=== PATIENT | male | born 1945 ===

== ENCOUNTER 2020-12-25 11:27 | Outpatient (CLI) | payer MEDICARE, OTHER | END 2020-12-25 11:28 | disposition critical access hospital (66) | LOC: EMS 11:27 | DX: R41.0 Disorientation, unspecified (principal); I10 Essential (primary) hypertension; R51.9 Headache, unspecified | CPT/HCPCS: A0425; A0427 ==

== ENCOUNTER 2020-12-25 11:44 | Emergency (ER) | payer MEDICARE, OTHER ==
--- NOTE | 2020-12-25 11:58 | ED Physician Documentation ---
History of Present Illness - Stated complaint Stated Complaint: CONFUSION/HEAD ACHE - Chief complaint Chief Complaint: Neuro - Additonal information Additional information: 75-year-old male is brought to the emergency department for evaluation of sudden onset confusion as well as headache. 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 He reports that at about 9 AM he developed a headache however it did not really bother him until about 10 or 1030. He was speaking to some of the workers onsite where they noted that he seemed confused and was not making sense therefore he was brought to one of our local walk-in clinics who summoned 911 to bring him here to the ER. He is noted to be moderately hypertensive with blood pressures 190/110. He reports a history of hypertension but is not on medications. He reports he controls his BP with beet juice. On presentation he is alert well oriented. He does seem confused as to place/city as well as the date of the month (thinks it is the 12th and not the 24th) He does report a mild frontal headache at this time. Denies tobacco use. Very infrequent alcohol use. No history of coronary artery disease or strokes. Fast exam negative. NIHSS 0 Review of Systems Constitutional: denies: Fever, Chills Eyes: denies: Loss of vision Ears: reports: Reviewed and negative Nose: reports: Reviewed and negative Throat: reports: Reviewed and negative Cardiac: denies: Chest pain / pressure, Palpitations Respiratory: denies: Dyspnea, Cough GI: denies: Abdominal Pain, Nausea, Vomiting : denies: Dysuria, Frequency, Hesitancy Skin: denies: Rash, Lesions Musculoskeletal: reports: Reviewed and negative Neurologic: reports: Confused, Headache. denies: Generalized weakness, Focal weakness, Numbness, Difficulty speaking, Syncope, Seizure, Head injury, LOC Psychiatric: denies: Depressed, Suicidal Endocrine: denies: Polydypsia, Polyuria PD PAST MEDICAL HISTORY - Present Medications Home Medications: Ambulatory Orders Medication Instructions Recorded Confirmed Lisinopril [Zestril] 10 mg PO DAILY #30 tablet 12/25/20 - Allergies Allergies/Adverse Reactions: Allergies Allergy/AdvReac Type Severity Reaction Status Date / Time No Known Drug Allergies Allergy Verified 12/25/20 11:50 PD ED PE EXPANDED - General General: Alert, No acute distress, Well developed/nourished - HEENT HEENT: Atraumatic, PERRL, EOMI, Moist mucous membranes - Eyes Eyes: PERRL, Normal accommodation - Neck Neck: Supple w/out meningeal sx. No: Adenopathy - Cardiac Cardiac: Regular Rate, Radial strong equal, Cap refill < 2 sec. No: Murmur Present - Respiratory Respiratory: Clear to ausultation alverto. No: Distress, Labored - Abdomen Abdomen: Normal Bowel sounds. No: Tender to palpation - Derm Derm: Normal color, Warm and dry - Extremities Extremities: Normal. No: Deformity, Tenderness - Neuro Neuro: Alert and Oriented X 3, CNII-XII intact, Cerebellar nl, Normal gait, Normal finger nose, Normal speech - GCS Eye Opening: Spontaneous Motor: Obeys Commands Verbal: Oriented Total: 15 - Psych Psych: Normal Results - Vitals Vitals: Vital Signs - 24 hr 12/25/20 11:50 Temperature 36.5 C Heart Rate 60 Respiratory 16 Rate Blood Pressure 188/93 H O2 Saturation 98 Oxygen O2 Source Room air - EKG (time done) 1200 Rate: Rate (enter#) (62) Rhythm: NSR [place]: Normal Intervals: Normal MD. No: Prolonged QT QRS: LVH Ischemia: Non specific changes (inferior leads) Compare to prior EKG: Old EKG unavailable Computer interpretation: Agree with computer - Labs Labs: Laboratory Tests 12/25/20 12/25/20 12/25/20 12:19 12:19 12:19 WBC 8.3 RBC 4.88 Hgb 15.3 Hct 44.9 MCV 92.0 MCH 31.4 H MCHC 34.1 RDW 12.1 Plt Count 182 MPV 11.0 Neut # (Auto) 6.0 Lymph # (Auto) 1.2 L [place] # (Auto) 1.0 Eos # (Auto) 0.2 Baso # (Auto) 0.1 Absolute Nucleated RBC 0.00 Nucleated RBC % 0.0 PT 11.5 INR 1.0 Sodium 134 L Potassium 4.1 Chloride 98 L Carbon Dioxide 27 Anion Gap 9.0 BUN 23 H Creatinine 0.9 Estimated GFR (MDRD) 82 L Glucose 99 Calcium 9.1 Total Bilirubin 0.8 AST 23 ALT 18 Alkaline Phosphatase 63 Troponin I High Sens B-Natriuretic Peptide Total Protein 7.0 Albumin 4.4 Globulin 2.6 Albumin/Globulin Ratio 1.7 Lipase 26 Urine Color Urine Clarity Urine pH Ur Specific [place] Urine Protein Urine Glucose (UA) Urine Ketones Urine Occult Blood Urine Nitrite Urine Bilirubin Urine Urobilinogen Ur Leukocyte Esterase Urine RBC Urine WBC Ur Squamous Epith Cells Urine Bacteria Ur Microscopic Review Urine Culture Comments Urine Opiates Screen Ur Oxycodone Screen Urine Methadone Screen Ur Propoxyphene Screen Ur Barbiturates Screen Ur Tricyclics Screen Ur Phencyclidine Scrn Ur Amphetamine Screen U Methamphetamines Scrn U Benzodiazepines Scrn Urine Cocaine Screen U Cannabinoids Screen 12/25/20 12/25/20 12/25/20 12:19 12:19 12:37 WBC RBC Hgb Hct MCV MCH MCHC RDW Plt Count MPV Neut # (Auto) Lymph # (Auto) [place] # (Auto) Eos # (Auto) Baso # (Auto) Absolute Nucleated RBC Nucleated RBC % PT INR Sodium Potassium Chloride Carbon Dioxide Anion Gap BUN Creatinine Estimated GFR (MDRD) Glucose Calcium Total Bilirubin AST ALT Alkaline Phosphatase Troponin I High Sens 12.0 B-Natriuretic Peptide 63 Total Protein Albumin Globulin Albumin/Globulin Ratio Lipase Urine Color YELLOW Urine Clarity CLEAR Urine pH 6.5 Ur Specific [place] 1.020 Urine Protein NEGATIVE Urine Glucose (UA) NEGATIVE Urine Ketones NEGATIVE Urine Occult Blood SMALL H Urine Nitrite NEGATIVE Urine Bilirubin NEGATIVE Urine Urobilinogen 0.2 (NORMAL) Ur Leukocyte Esterase NEGATIVE Urine RBC 0-5 Urine WBC 0-3 Ur Squamous Epith Cells NONE SEEN Urine Bacteria None Seen Ur Microscopic Review INDICATED Urine Culture Comments NOT INDICATED Urine Opiates Screen NEGATIVE Ur Oxycodone Screen NEGATIVE Urine Methadone Screen NEGATIVE Ur Propoxyphene Screen NEGATIVE Ur Barbiturates Screen NEGATIVE Ur Tricyclics Screen NEGATIVE Ur Phencyclidine Scrn NEGATIVE Ur Amphetamine Screen NEGATIVE U Methamphetamines Scrn NEGATIVE U Benzodiazepines Scrn NEGATIVE Urine Cocaine Screen NEGATIVE U Cannabinoids Screen NEGATIVE - Rads (name of study) CXR Radiology: Final report received (Mild pulmonary vascular congestion is seen. No definite focal infiltrate. Increased interstitial thickening is noted suggestive of mild pulmonary edema.) CT angio neck/head Radiology: Final report received (No areas of hemodynamically significant stenosis, vascular occlusion or aneurysmal dilation within the neck vasculature. Asymmetric appearance of the right M1 segment of the right middle cerebral artery.) PD MEDICAL DECISION MAKING - ED course Complexity details: reviewed results, re-evaluated patient, d/w patient ED course: 75-year-old male is presented to the emergency department for evaluation of a brief episode of confusion at his worksite. He developed a mild headache about 9 AM and then about 10 AM he got suddenly worse. When he was speaking with his coworkers they found him to be confused and not making sense. However in discussion with a coworker it does not sound that he had facial droop focal weakness or slurred speech. He simply was not himself nor was he making sense. He initially was taken to a walk in clinic who then summoned EMS. Here on arrival to the emergency department he was confused to place and the [place] Blood glucose 104 for EMS His NIHSS was 0. Fast exam was negative. Screening labs without worrisome abnormality. MUDS screen negative. CT angio of the head and neck shows mild Right M1 MCA stenosis with preserved distal M2 M3 flow. There were no findings of aneurysm or bleed. 1430: I spoke with Dr. Cole neurologist with [facility]. He does not feel that the mild right MCA stenosis would be the likely cause of headache and confusion. I confirmed with out coronary care unit nurse radiologist that tehre was no venous sinus thrombosis. He did request a lumbar puncture to rule out xanthochromia as well as an infectious process. HGowever meningitis is unlikely given lack of fevers, leukocytosis or meningeal sings. Based on these results of a lumbar puncture, Dr. Cole would then make a recommendation for possible transfer for further evaluation of the headache and the confusion. Unfortunately [facility] does not have MRI services at this time 1620: I have discussed the case on the phone with the patient's ([place] [phone]) and the patient himself. I have recommended lumbar puncture to further evaluate for xanthochromia or infection. Both the patient and his are very hesitant to allow lumbar puncture to proceed. I offered to have the patient seen by my colleague. That was declined as well. I discussed at length that I did not know the cause of his headache or confusion that now seems resolved. Subarachnoid hemorrhage, infection, TIA or even MCA stroke are possibilities moving forward. Any of these events could result in or disability for the patient. I also discussed that transfer may be necessary for further evaluation of the events as we lack MRI services here. Unfortunately I was unable to convince the patient to remain for further testing. I did offer to try and transfer to other hospitals, but the patient declined to that. He stated that he feels better, he understands that we do not know the cause of the headache and that infection or bleeding in the brain is fatal but he feels convinced that his primary doctor can manage this. I reiterated that primary care provider are not able to manage stroke like events in their offices. However I could not convince him to stay for further testing or treatment. I will write a prescription for lisinopril to help manage his elevated blood pressure and I was adamant to the patient that he could return at any time for further testing and treatment should he choose. Departure - Departure Disposition: Against Medical Advice Clinical Impression: Confusion, Stenosis of right middle cerebral artery Headache Qualifiers: Headache type: unspecified Headache chronicity pattern: acute headache Intractability: not intractable Qualified Code(s): R51.9 - Headache, unspecified Hematuria Qualifiers: Hematuria type: unspecified type Qualified Code(s): R31.9 - Hematuria, unspecified Hypertension Qualifiers: Hypertension type: unspecified Qualified Code(s): I10 - Essential (primary) hypertension Condition: Serious Prescriptions: Lisinopril [Zestril] 10 mg PO DAILY #30 tablet Comments: Kj medina were seen in the emergency department for headache and confusion that occurred while at your job site. The CT angiogram of your head and neck did show that here was a small amount of stenosis or narrowing in your right middle cerebral artery. However the flow beyond that was normal. It is possible that the symptoms that you had could be a type of stroke, it could be secondary to infection or it could be to unseen bleeding within the CAT scan. We offered a lumbar puncture to help us further determine the cause of your headache and confusion but you declined. I offered to transfer you to a hospital that may also have neurology services with MRI capability but you have declined that as well. We do not know the cause of your headache and confusion. You are choosing to leave AGAINST MEDICAL ADVICE. The unknown cause of your headache and confusion could cause you . You do have very elevated blood pressure therefore I do advise that you fill the prescription for the lisinopril. If at any point you feel that your symptoms are worsening you can return immediately to the ER for further evaluation.
--- NOTE | 2020-12-25 12:15 | XRAY Report ---
PROCEDURE: Chest 1 View X-Ray INDICATIONS: chest pain TECHNIQUE: One view of the chest was acquired. COMPARISON: None. FINDINGS: Surgical changes and devices: None. Lungs and pleura: No pleural effusions or pneumothorax. Mild pulmonary vascular congestion is seen. No definite focal infiltrate. Increased interstitial reticular thickening is noted suggestive of mild pulmonary edema. Mediastinum: Tortuous thoracic aorta is seen. Heart size is enlarged. Bones and chest wall: No suspicious bony lesions. Overlying soft tissues appear unremarkable. IMPRESSION: Finding is suggestive of CHF. No definite focal infiltrate. No pleural effusion or pneumothorax. Reviewed by: Gianni Frey MD on 12/25/2020 12:14 PM PDT Approved by: Gianni Frey MD on 12/25/2020 12:14 PM PDT Station ID: [id number]
[2020-12-25 12:26] LABS: BASOPHILS # (AUTO) 0.1 10^3/uL (0.0-0.1); BASOPHILS % (AUTO) 0.7 %; EOSINOPHILS # (AUTO) 0.2 10^3/uL (0.0-0.7); EOSINOPHILS % (AUTO) 1.8 %; HCT - HEMATOCRIT 44.9 % (42.0-52.0); HGB - HEMOGLOBIN 15.3 g/dL (14.0-18.0); LYMPHOCYTES # (AUTO) 1.2 10^3/uL (1.5-3.5); LYMPHOCYTES % (AUTO) 13.9 %; MEAN CORPUSCULAR HEMOGLOBIN 31.4 pg (27.0-31.0); MEAN CORPUSCULAR HGB CONC 34.1 g/dL (32.0-36.0); MONOCYTES % (AUTO) 11.6 %; NEUTROPHILS % (AUTO) 71.6 %; PLT - PLATELET COUNT 182 10^3/uL (130-450); RED BLOOD COUNT 4.88 10^6/uL (4.70-6.10); RED CELL DISTRIBUTION WIDTH 12.1 % (12.0-15.0); WHITE BLOOD COUNT 8.3 x10^3/uL (4.8-10.8)
[2020-12-25 12:34] LABS: PT - PROTHROMBIN TIME 11.5 secs (9.9-12.6)
[2020-12-25 12:47] LABS: ALBUMIN 4.4 g/dL (3.2-5.5); ALBUMIN/GLOBULIN RATIO 1.7 (1.0-2.2); BILIRUBIN,TOTAL 0.8 mg/dL (0.2-1.0); CALCIUM 9.1 mg/dL (8.5-10.3); CREATININE 0.9 mg/dL (0.6-1.2); POTASSIUM 4.1 mmol/L (3.5-5.0)
[2020-12-25] MEDS ORDERED: HYDROmorphone 0.5 MG/0.5 ML SYRINGE IVP STA (12:49)
[2020-12-25] MEDS ORDERED: IOVERSOL 320 100 ML VIAL IVP ONE ×2 (12:55→13:27)
[2020-12-25 13:10] LABS: MUDS CUTOFF CONCENTRATIONS CUTOFF CONC BELOW:
[2020-12-25 13:13] LABS: BILIRUBIN,URINE NEGATIVE (NEGATIVE); GLUCOSE, URINE (UA) NEGATIVE (NEGATIVE); KETONES,URINE (UA) NEGATIVE (NEGATIVE); LEUKOCYTE ESTERASE, URINE NEGATIVE (NEGATIVE); NITRITE,URINE NEGATIVE (NEGATIVE); OCCULT BLOOD,URINE SMALL (NEGATIVE); PH,URINE 6.5 PH (5.0-7.5); PROTEIN,URINE NEGATIVE (NEGATIVE); UROBILINOGEN,URINE 0.2 (NORMAL) E.U./dL (NORMAL)
[2020-12-25 13:16] LABS: CLARITY,URINE CLEAR (CLEAR)
[2020-12-25 13:27] LABS: BACTERIA,URINE None Seen /HPF (None Seen); RBC,URINE 0-5 /HPF (0-5); SQUAMOUS EPITHELIAL CELL,UR NONE SEEN (<= Few); WBC,URINE 0-3 /HPF (0-3)
[2020-12-25 13:28] LABS: AMPHETAMINE SCREEN,URINE NEGATIVE (NEGATIVE); BARBITURATE SCREEN,UR NEGATIVE (NEGATIVE); BENZODIAZEPINES SCREEN, URINE NEGATIVE (NEGATIVE); COCAINE SCREEN URINE NEGATIVE (NEGATIVE); METHADONE SCREEN, URINE NEGATIVE (NEGATIVE); METHAMPHETAMINES SCREEN, URINE NEGATIVE (NEGATIVE); OPIATE SCREEN, URINE NEGATIVE (NEGATIVE); OXYCODONE SCREEN, URINE NEGATIVE (NEGATIVE); PROPOXYPHENE SCREEN, URINE NEGATIVE (NEGATIVE); THC CANNABINOID SCREEN, URINE NEGATIVE (NEGATIVE); TRICYCLIC ANTIDEPRESSANT,URINE NEGATIVE (NEGATIVE)
--- NOTE | 2020-12-25 13:45 | CT Report ---
PROCEDURE: ANGIO HEAD W/WO INDICATIONS: L sided facial droop CONTRAST: IV CONTRAST: Optiray 320 ml: 80 PO CONTRAST: *NO PO CONTRAST TECHNIQUE: Precontrast 4.5 mm thick angled axial sections acquired from the foramen magnum to the vertex. Afte r the administration of intravenous contrast, 1 mm thick sections acquired through the [place] of [place] is. Postcontrast 4.5 mm thick sections then re-acquired from the foramen magnum to the vertex. 3-di mensional nyxnucv-dijbebbbz-jbtvjgajwj (MIP) and/or volume rendering reformats were acquired of the c entral intracranial vasculature. For radiation dose reduction, the following was used: automated ex posure control, adjustment of mA and/or kV according to patient size. COMPARISON: CTA neck 12/25/2020 FINDINGS: Image quality: Excellent. Anterior circulation: Intracranial internal carotid arteries are normal in size and flow. The flow within the paired anterior cerebral arteries is normal and symmetric. There is an asymmetric appearan ce of narrowing and irregularity within the mid and distal segment of the right M1 segment middle cer ebral artery compared to the left. No exams are available for comparison. Distal vascular flow is pre sent into the M2 and M3 segments. The anterior communicating artery is seen. No aneurysms are seen. Posterior circulation: Visualized portions of the vertebral arteries demonstrate normal caliber, and join to form a normal appearing basilar artery. Flow within the posterior cerebral arteries is norm al and symmetric. No aneurysms are seen. There is a vertebral artery dominance. The ventricular system and cortical sulci demonstrate atrophy, consistent for patient's stated age. There are areas of hypodensity in the periventricular and subcortical white matter. There is no acut e intra or extra-axial fluid collection. No acute hemorrhage, mass lesion or midline shift. Brainst em is unremarkable. Old left Globes are symmetrical. Sinuses are aerated. Osseous structures are intact. IMPRESSION: 1. Asymmetric narrowing with areas of irregularity and short segment stenosis within the right M1 seg ment of the middle cerebral artery compared to the left. Chronicity is indeterminate. There is distal flow present within the M2 and M3 segments. 2. No intracranial hemorrhage. Moderate atrophy and chronic microvascular ischemic changes are presen t. Reviewed by: Lissa Sadler MD on 12/25/2020 1:43 PM PDT Approved by: Lissa Sadler MD on 12/25/2020 1:43 PM PDT Station ID: [id number]
--- NOTE | 2020-12-25 13:53 | CT Report ---
PROCEDURE: ANGIO NECK W INDICATIONS: L sided facial droop, L neck pain CONTRAST: IV CONTRAST: Optiray 320 ml: 80 PO CONTRAST: *NO PO CONTRAST TECHNIQUE: After the administration of intravenous contrast, 1.5 mm axial sections acquired from the aortic arch to the [place] of [place]. Coronal 3-D maximum intensity projection (MIP) and/or volume rendering ref ormats were then performed. For radiation dose reduction, the following was used: automated exposur e control, adjustment of mA and/or kV according to patient size. COMPARISON: CTA 12/25/2020 FINDINGS: Image quality: Excellent. The origins of the left and right common, internal and external carotid arteries demonstrate no areas of hemodynamically significant stenosis, vascular occlusion or aneurysmal dilation. Origin of the le ft vertebral artery and right vertebral artery demonstrate no areas of hemodynamically significant st enosis, vascular occlusion or aneurysmal dilation. Asymmetric appearance of the M1 segment of the rig ht middle cerebral artery. 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 Limited, visual ized portions of the subclavian vasculature are unremarkable. IMPRESSION: 1. There are no areas of hemodynamically significant stenosis, vascular occlusion or aneurysmal dilat ion within the neck vasculature. 2. Asymmetric appearance of the right M1 segment of the middle cerebral artery. Please see CTA head r eport of 12/25/2020 for further details. The estimate of stenosis included in the report of the imaging study was calculated using the NASCET method Reviewed by: Lissa Sadler MD on 12/25/2020 1:52 PM PDT Approved by: Lissa Sadler MD on 12/25/2020 1:52 PM PDT Station ID: [id number]
[2020-12-25] MEDS ORDERED: CLOPIDOGREL 300 MG TABLET PO STA (14:00)
[2020-12-25] MEDS ORDERED: ASPIRIN CHEW 81 MG TABLET PO STA (14:00)
[2020-12-25] MEDS ORDERED: lisinopriL 5 MG TABLET PO STA (14:00)
[2020-12-25 20:04] VITALS: BP 188/91
== END 2020-12-25 17:00 | disposition left against medical advice (07) ==
LOC: ED 11:44
DX: I66.3 Occlusion and stenosis of cerebellar arteries (principal); I10 Essential (primary) hypertension; R31.9 Hematuria, unspecified; R51.9 Headache, unspecified; R41.0 Disorientation, unspecified
CPT/HCPCS: 36415; 70496; 70498; 71045; 80053; 80306; 81001; 83690; 83880; 84484; 85025; 85610; 93005; 96374; 99284; 99285; A9270; J1170; Q9967; 81003; 87086